=== PATIENT | male | born 1995 | race Hispanic/Latino ===

== ENCOUNTER 2020-11-17 15:01 | Emergency (ER) | payer OTHER ==
[2020-11-17] MEDS ORDERED: 0.9%NACL 1000ML 1,000 ML IV ONE (15:36)
[2020-11-17] MEDS ORDERED: CYCLOBENZAPRINE HCL 10 MG TABLET ONE (15:37)
[2020-11-17] MEDS ORDERED: KETOROLAC 30MG VIAL (30MG/ML) ONE (15:37)
[2020-11-17 15:38] LABS: BASOPHILS % (AUTO) 0.8 % (0.0-5.0); EOSINOPHILS % (AUTO) 2.6 % (0.0-8.0); HEMATOCRIT 43.6 % (42-54); LYMPHOCYTES % (AUTO) 33.1 % (21.0-51.0); MEAN CORPUSCULAR HGB CONC 35.3 g/dL (32.0-36.0); MEAN CORPUSCULAR VOLUME 87.9 fL (79-99); MONOCYTES % (AUTO) 7.3 % (3.0-13.0); PLATELET COUNT (AUTO) 230 K/uL (130-400); RED BLOOD CELL COUNT(AUTO) 4.96 MIL/uL (4.50-6.20); RED CELL DISTRIBUTION WIDTH 12.1 % (11.0-15.5); WHITE BLOOD COUNT (AUTO) 9.1 K/uL (4.8-10.8)
[2020-11-17 15:51] LABS: CREATININE 0.9 mg/dL (0.5-1.5)
[2020-11-17 15:56] LABS: ALBUMIN 4.3 g/dL (3.5-5.0); BILIRUBIN,TOTAL 0.3 mg/dL (0.2-1.0); TOTAL PROTEIN, SERUM 8.3 g/dL (6.0-8.3)
== END 2020-11-17 16:22 ==
LOC: EDH 15:01 → EEVIPCON 15:01 → EDH 16:22
DX: G43.909 Migraine, unspecified, not intractable, without status migrainosus (principal)
CPT/HCPCS: 36415; 80053; 85025; 96361; 96374; 96375; 99284; J1885; J7030